=== PATIENT | male | born 1985 | race Asian ===

== ENCOUNTER 2023-09-16 08:07 | Emergency (ER) | payer MEDICAID ==
[~2023-09-16] VITALS: Ht 167.6 cm; Wt 65.8 kg
[2023-09-16 08:09] VITALS: BP 170/110; PULSE 60; RESP 16; TEMP 98.1; O2SAT 98
[2023-09-16] MEDS: KETOROLAC 60 MG/2 ML VIAL IM ONE (08:47)
[2023-09-16] MEDS: ONDANSETRON 4 MG ODT PO ONE (08:48)
[2023-09-16 08:53] VITALS: O2SAT 98
[2023-09-16] MEDS ORDERED: ONDA8TAB87 PO (08:59)
[2023-09-16] MEDS ORDERED: IBUP-2213 PO (09:00)
[2023-09-16 09:18] VITALS: BP 170/110; PULSE 60; RESP 16; TEMP 98.1; O2SAT 98
== END 2023-09-16 09:18 | disposition home or self-care (01) ==
LOC: MED 08:07
DX: R11.2 Nausea with vomiting, unspecified (principal); R10.13 Epigastric pain; Z79.899 Other long term (current) drug therapy
CPT/HCPCS: 96372; 99283; J1885; Q0162